=== PATIENT | female | born 1980 | race Hispanic/Latino ===

== ENCOUNTER 2017-04-23 14:36 | Emergency (ER) | payer BC ==
--- NOTE | 2017-04-23 15:09 | ED PDOC ---
History of Present Illness History of Present Illness: 37 year old female with no past medical history presents to the ER for evaluation of cough with associated congestion and body aches onset 3 days ago. Patient also reports having a fever and chills, but has not taken any medications for fever today. She states visiting an urgent care clinic where she was diagnosed with the flu and was prescribed Zofran and Tamiflu, but is visiting the ER for a second evaluation of symptoms. Patient denies any chest pain, shortness of breath, nausea, or vomiting. She offers no other medical complaints at this time. PMD: Urgent Care clinic in [place] HPI: Influenza Time Seen by Provider: 04/23/17 14:52 Chief Complaint: Flu-like Symptoms Chief Complaint (Provider): Flu-like symptoms History Per: Patient, Family Exam Limitations: no limitations Onset/Duration Of Symptoms: Days (x3) Symptoms include: fever, sore throat, cough, nasal congestion. denies: vomiting , chest pain, difficulty breathing Past Medical History Reviewed: Historical Data, Nursing Documentation, Vital Signs Vital Signs: Last Vital Signs Temp 100 F H 04/23/17 14:38 Pulse 99 H 04/23/17 14:38 Resp 16 04/23/17 14:38 BP 132/91 H 04/23/17 14:38 Pulse Ox 98 04/23/17 14:38 - Medical History PMH: No Chronic Diseases - Surgical History Surgical History: No Surg Hx - Family History Family History: States: Unknown Family Hx - Allergies Allergies/Adverse Reactions: Allergies Allergy/AdvReac Type Severity Reaction Status Date / Time No Known Allergies Allergy Verified 04/23/17 14:38 Review of Systems ROS Statement: Except As Marked, All Systems Reviewed And Found Negative Constitutional: Positive for: Fever, Chills, Other (body aches) ENT: Positive for: Nose Congestion, Throat Pain Cardiovascular: Negative for: Chest Pain Respiratory: Positive for: Cough. Negative for: Shortness of Breath Gastrointestinal: Negative for: Nausea, Vomiting Physical Exam - Reviewed Nursing Documentation Reviewed: Yes Vital Signs Reviewed: Yes - Physical Exam Appears: Positive for: Non-toxic, No Acute Distress Head Exam: Positive for: ATRAUMATIC, NORMAL INSPECTION, NORMOCEPHALIC Skin: Positive for: Normal Color, Warm, Dry Eye Exam: Positive for: Normal appearance ENT: Positive for: Normal ENT Inspection Neck: Positive for: Normal, Painless ROM Cardiovascular/Chest: Positive for: Regular Rate, Rhythm Respiratory: Positive for: Normal Breath Sounds. Negative for: Respiratory Distress Extremity: Positive for: Normal ROM. Negative for: Deformity, Swelling Neurologic/Psych: Positive for: Alert, Oriented Medical Decision Making Medical Decision Making: Time: 15:01 Impression: 37 year old female with cough and body aches Plan: --Chest X-Ray --Motrin 600 mg PO --Rapid Strep Chest X-Ray: FINDINGS: LUNGS: Poor inspiration with low lung volumes, crowded bronchovascular markings and mild bibasilar atelectasis. PLEURA: No significant pleural effusion identified. No pneumothorax apparent. CARDIOVASCULAR: Normal. OSSEOUS STRUCTURES: Minor multilevel degenerative spondylosis of the thoracic spine. . VISUALIZED UPPER ABDOMEN: Normal. OTHER FINDINGS: None. IMPRESSION: Poor inspiration with low lung volumes, crowded bronchovascular markings and mild bibasilar atelectasis. Scribe Attestation: Documented by Nadia Vargas, acting as a scribe for Su Galicia PA-C Provider Scribe Attestation: All medical record entries made by the Scribe were at my direction and personally dictated by me. I have reviewed the chart and agree that the record accurately reflects my personal performance of the history, physical exam, medical decision making, and the department course for this patient. I have also personally directed, reviewed, and agree with the discharge instructions and disposition. - ECG O2 Sat by Pulse Oximetry: 98 (RA) Pulse Ox Interpretation: Normal Disposition - Clinical Impression Clinical Impression: Influenza - Patient ED Disposition Is Patient to be Admitted: No - Disposition Disposition: Routine/Home Disposition Time: 16:50 Condition: GOOD Instructions: Flu, Adult (DC) Forms: [employer] ([place])
--- NOTE | 2017-04-23 16:17 | RAD ---
HISTORY: Cough x 3 days COMPARISON: No prior. TECHNIQUE: Chest PA and lateral FINDINGS: LUNGS: Poor inspiration with low lung volumes, crowded bronchovascular markings and mild bibasilar atelectasis. PLEURA: No significant pleural effusion identified. No pneumothorax apparent. CARDIOVASCULAR: Normal. OSSEOUS STRUCTURES: Minor multilevel degenerative spondylosis of the thoracic spine. . VISUALIZED UPPER ABDOMEN: Normal. OTHER FINDINGS: None. IMPRESSION: Poor inspiration with low lung volumes, crowded bronchovascular markings and mild bibasilar atelectasis.
[2017-04-23 17:00] VITALS: BP 124/70; PULSE 92; RESP 18; TEMP 100.1; O2SAT 99
== END 2017-04-23 17:06 | disposition home or self-care (01) ==
LOC: H.ER 14:36
DX: J11.1 Influenza due to unidentified influenza virus with other respiratory manifestations (principal)